=== PATIENT | male | born 1970 | race Caucasian/White ===

== ENCOUNTER 2021-09-09 11:26 | Outpatient (CLI) | payer OTHER | END 2021-09-09 11:27 | disposition home or self-care (01) | LOC: CSHLAB 11:26 | PROVIDERS: ATTEND Internal Medicine Gastroenterology | DX: Z20.822 Contact with and (suspected) exposure to COVID-19 (principal); Z12.11 Encounter for screening for malignant neoplasm of colon | CPT/HCPCS: U0003; U0005 ==

== ENCOUNTER 2021-09-12 08:15 | Day surgery (SDC) | payer OTHER ==
[2021-09-09 12:06] VITALS: BMI 28.7
[2021-09-12] MEDS ORDERED: Lidocaine 1% MPF 2 ML VIAL ONE (09:21)
[2021-09-12] MEDS ORDERED: PROPOFOL 40 ML ONE (09:39)
[2021-09-12] MEDS ORDERED: PROPOFOL 20 ML ONE (09:39)
[2021-09-12] MEDS ORDERED: Lidocaine 1% PF 5 ML VIAL ONE (09:39)
== END 2021-09-12 11:14 | disposition home or self-care (01) ==
LOC: CSHSDC 08:15
PROVIDERS: ATTEND Internal Medicine Gastroenterology
PROC: 0DJD8ZZ Inspection of Lower Intestinal Tract, Via Natural or Artificial Opening Endoscopic (ICD-10-PCS; principal; 2021-09-12)
DX: Z12.11 Encounter for screening for malignant neoplasm of colon (principal); K57.30 Diverticulosis of large intestine without perforation or abscess without bleeding; K64.9 Unspecified hemorrhoids; I10 Essential (primary) hypertension; E78.5 Hyperlipidemia, unspecified; Z79.899 Other long term (current) drug therapy
CPT/HCPCS: J2704

== ENCOUNTER 2022-05-18 13:05 | Emergency (ER) | payer OTHER | END 2022-05-18 15:45 | disposition home or self-care (01) | LOC: CSHERS 13:05 | DX: S01.512A Laceration without foreign body of oral cavity, initial encounter (principal); W50.3XXA Accidental bite by another person, initial encounter | CPT/HCPCS: 99283 ==